=== PATIENT | female | born 1990 | race Caucasian/White ===

== ENCOUNTER 2019-04-12 12:54 | Outpatient (CLI) | payer MEDICAID ==
[~2019-04-12] VITALS: Ht 165.1 cm; Wt 91.9 kg
[2019-04-12 13:18] VITALS: Ht 165.1 cm; Wt 91.9 kg
[2019-04-12 13:19] VITALS: BP 115/70; PULSE 80; RESP 18
[2019-04-12] MEDS ORDERED: PNV11TAB PO (13:22)
--- NOTE | 2019-04-12 14:47 | PN ---
Triage Information Date/Time Reason for visit: Uterine contractions Weeks of Gestation 39+ /Para n/a Diabetes: none Hypertention: none Objective Vital Signs Date Temp Pulse Resp B/P (MAP) Pulse Ox O2 O2 Flow FiO2 Time Delivery Rate 04/12/19 98.5 80 18 115/70 13:19 (85) Heart Rate: 140's Contractions: None Disposition: Discharge Assessment/Plan BPP 08/11 Cx fingertip Precautions discussed Questions answered Follow up with provider JEANE DUKE M.D. Apr 12, 2019 14:47
--- NOTE | 2019-04-12 15:36 | TRIAGE ---
OB Triage Datetime Report Generated by CPN: 04/12/2019 15:35 Datetime: 04/12/2019 14:42 Stage of : OB Triage Datetime: 04/12/2019 14:18 Labor Evaluation Frequency: 0 Monitor Mode: External Pattern: Normal: <= 5 Contractions in 10 Minutes Resting Tone Worth: Relaxed Heart Rate FHR Baseline Rate: 155 Monitor Mode: External US Variability: Moderate 6-25 bpm Accelerations: 10X10 Decelerations: None Category: Category I Pain Assessment Pain Scale: 0 Pain Presence: None/Denies Pain Type: N/A Pain Goal: 3 Pain Relief Measures: Comfort Measures Datetime: 04/12/2019 13:24 Stage of : OB Triage Datetime: 04/12/2019 13:11 Stage of : OB Triage Assessment Type: Triage Maternal Assessment Level of Consciousness: Keenly Alert, Responsive DTR's/Clonus: DTRs 2+; No Clonus Headache: Denies Blurred Vision: No Respiratory Effort: Unlabored; Regular Rhythm; Equal Expansion Breath Sounds, Left: Clear and Equal Breath Sounds, Right: Clear and Equal Nausea/Vomiting: Denies RUQ Epigastric Pain: Denies Facial Edema: None Temperature Route: Axillary Fall Risk Assessment History of Falling: (0) No Secondary Diagnosis: (0) No Ambulatory Aid: (0) Bedrest/Nurse Assist IV Therapy: (0) No Gait: (0) Normal/Bedrest/Immobile Mental Status: (0) Oriented to Own Ability Fall Score: 0 Fall Risk Score Definition: No Risk: No action required Labor Evaluation Frequency: 0 Monitor Mode: External Quality: Mild Pattern: Normal: <= 5 Contractions in 10 Minutes Resting Tone Worth: Relaxed Interventions: Sterile Vaginal Exam Heart Rate FHR Baseline Rate: 160 Monitor Mode: External US Variability: Moderate 6-25 bpm Accelerations: None Decelerations: None Pain Assessment Pain Scale: 2 Pain Presence: Intermittent Pain Type: Cramping Pain Location: Abdomen Pain Goal: 3 Pain Relief Measures: Comfort Measures Vaginal Exam Dilatation (cms): 0.5 Effacement (%): 50 Station: -2 Exam By: S IVETH Membrane Status: Intact Datetime: 04/12/2019 13:07 Time of Arrival: 04/12/2019 12:51 EGA: 39.2 Arrived By: Ambulatory Arrived From: Home Chief Complaint: C/O UC'S Q 8 MIN THAT STARTED AT APPROX 5AM, DENIES BLEEDING OR LEAKING Movement: Present Contractions: Irregular Rupture of Membranes: Denies Vaginal Bleeding: None Vaginal Discharge: Denies Recent Sexual Intercouse: Denies Abdominal Trauma: Not Applicable Patient Complaints: Contractions; Cramping Time Provider Notified: 04/12/2019 13:24 Provider Notified: BRADLEY Initial Plan: MONITOR, VE, BPP
== END 2019-04-12 14:58 | disposition home or self-care (01) ==
LOC: OBT 12:54 → L-D 12:54 → OBT 14:58
PROVIDERS: ATTEND Obstetrics & Gynecology
DX: O62.9 Abnormality of forces of labor, unspecified (principal); Z3A.39 39 weeks gestation of pregnancy
CPT/HCPCS: 76815; 76818; Z7500; G0463

== ENCOUNTER 2019-04-17 09:04 | Inpatient (IN) | payer MEDICAID ==
[~2019-04-17] VITALS: Ht 165.1 cm; Wt 92.2 kg
[~2019-04-17 09:04] MED LIST: PNV11TAB PO
[2019-04-17 09:24] VITALS: Ht 165.1 cm; Wt 92.2 kg
[2019-04-17 09:25] VITALS: BP 134/81; PULSE 82; RESP 18
[2019-04-17] MEDS ORDERED: BUTORPHANOL 2 MG INJ IV PRN ×2 (10:00)
[2019-04-17] MEDS ORDERED: LIDOCAINE 1% (MPF) 30 ML INJ INJ PRN (10:00)
[2019-04-17] MEDS ORDERED: METHYLERGONOVINE 0.2 MG INJ IM PRN (10:00)
[2019-04-17] MEDS ORDERED: OXYTOCIN 30 UNITS/LR 500 ML IV PRN (10:00)
[2019-04-17] MEDS ORDERED: MISOPROSTOL 200 MCG TAB PR PRN (10:00)
[2019-04-17] MEDS ORDERED: MISOPROSTOL 50 MCG CAPSULE VAG ONE (10:00)
[2019-04-17] MEDS ORDERED: OXYTOCIN 30 UNITS/LR 500 ML IV SCH ×2 (10:00)
[2019-04-17] MEDS ORDERED: CARBOPROST 250 MCG INJ IM PRN (10:00)
--- NOTE | 2019-04-17 10:06 | HP ---
Date/Time of Note Date/Time of Note DATE: 04/17/19 TIME: 10:05 OB - History Hx of Present Free Text/Dictation 40+ : 1 Para: 0 Care: Good Care Ultrasounds: Normal mid trimester US Obstetrical Complications: None Medical Complications: None Past Family/Social History * Past Medical, Surgical, Family and Obstetric Histories reviewed from chart. OB Admission Exam Vital Signs Vital Signs Vital Signs Date Temp Pulse Resp B/P (MAP) Pulse Ox O2 O2 Flow FiO2 Time Delivery Rate 04/17/19 98.7 82 18 134/81 09:25 (98) Physical Exam Abdomen: WNL Extremities: Normal Cervical Dilatation: 1cm Effacement: 50% Station: -1 Membranes: Intact Heart Rate: 140's Accelerations: Accelerations Present Decelerations: No Decelerations Varibility: Moderate Contractions on Admission: 6-10 Minutes Apart OB Assessment/Plan Reason for admission: observation Other Assessment: PMH Denies PSH Denies Plan: Expectant Management JEANE DUKE M.D. Apr 17, 2019 10:06
[2019-04-17] MEDS: LACTATED RINGER'S 1,000 ML IV SCH ×3 (10:08→23:20)
[2019-04-17] MEDS: MISOPROSTOL 50 MCG CAPSULE PO SCH (18:22)
[2019-04-17] MEDS ORDERED: MINERAL OIL LIGHT 10 ML VIAL TOP ONE (20:00)
[2019-04-18] MEDS: MISOPROSTOL 50 MCG CAPSULE PO SCH ×2 (00:01→05:51)
[2019-04-18] MEDS: LACTATED RINGER'S 1,000 ML IV SCH ×3 (08:16→14:32)
--- NOTE | 2019-04-18 09:51 | QN ---
Documentation Comment progress note patient seen and evaluated no complaints vs stable afebrile ab gravid nt extremity no edema no calf tenderness ve deffered a/ iup at 40 wks 1 day ga, admitted for induction currently on cytotec for cervical ripening p/ continue present management RIANNA HUERTA MD Apr 18, 2019 09:51
--- NOTE | 2019-04-18 10:53 | PREAC ---
Date/Time of Note Date/Time of Note DATE: 04/18/19 TIME: 10:51 Anesthesia Eval and Record Evaluation Time Pre-Procedure Interview DATE: 04/18/19 TIME: 10:51 Age 28 Sex female NPO: 8 hrs Preoperative diagnosis labor pain Planned procedure epidural Past Medical History Past Medical History: Includes : Gestational age: (40.1) Surgery & Anesthesia Issues No known issue Meds Anticoagulation: No Beta Chilo within 24 hr: No Reason Beta Chilo not given: Pt. not on B-Chilo Reported Medications [id number] ( 19) 1 Each Tablet, 1 TAB PO DAILY, TAB 04/12/19 Current Medications Lactated Ringer's 1,000 ml @ 125 mls/hr Q8H IV Last administered on 04/18/19at 08:16; Admin Dose 125 MLS/HR; Start 04/17/19 at 09:44 Butorphanol Tartrate (Stadol) 1 mg Q2H PRN IV .PAIN SCALE 1-5; Start 04/17/19 at 10:00 Butorphanol Tartrate (Stadol) 2 mg Q2H PRN IV .PAIN SCALE 6-10; Start 04/17/19 at 10:00 Lidocaine (Xylocaine 1% (Mpf)) 30 ml ONCE PRN INJ .EPISIOTOMY; Start 04/17/19 at 10:00 Oxytocin/Lactated Ringer's 500 ml @ 500 mls/hr ONCE POST IV ; Start 04/17/19 at 10:00 Oxytocin/Lactated Ringer's 500 ml @ 125 mls/hr POST IV ; Start 04/17/19 at 10:00 Oxytocin/Lactated Ringer's 500 ml @ 0 mls/hr ONCE PRN IV .VAGINAL BLEEDING; Start 04/17/19 at 10:00 Methylergonovine Maleate (Methergine) 0.2 mg ONCE PRN IM .VAGINAL BLEEDING; Start 04/17/19 at 10:00 Carboprost Tromethamine (Hemabate) 250 mcg ONCE PRN IM .VAGINAL BLEEDING; Start 04/17/19 at 10:00 Misoprostol (Cytotec) 1,000 mcg ONCE PRN PA .VAGINAL BLEEDING; Start 04/17/19 at 10:00 Misoprostol (Cytotec 50 Mcg Capsule) 50 mcg Q4 PO Last administered on 04/18/19at 05:51; Admin Dose 50 MCG; Start 04/17/19 at 18:15 Meds reviewed: Yes Allergies Coded Allergies: No Known Allergy (Unverified , 04/12/19) Allergies Reviewed: Yes Labs/Studies Labs Reviewed: Reviewed by anesthesiologist Result Diagram: 04/17/19 1028 test: Positive Studies: ECG (n/a), CXR (n/a) Pre-procedure Exam Last vitals Vital Signs Date Temp Pulse Resp B/P (MAP) Pulse Ox O2 O2 Flow FiO2 Time Delivery Rate 04/17/19 98.7 82 18 134/81 09:25 (98) Airway: Adequate mouth opening Mallampati: Mallampati I Teeth: Normal Lung: Normal Heart: Normal ASA Physical Status ASA physical status: 2 Emergency: None Planned Anesthetic Neuraxial: Epidural Pre-operative Attestations Prior to commencing anesthesia and surgery, the patient was re-evaluated, there was verification of: *The patient's identity *The results of appropriate recent lab work and preoperative vital signs *The above evaluation not changing prior to induction *Anesthetic plan, risk benefits, alternative and complications discussed with patient/family; questions answered; patient/family understands, accepts and wishes to proceed. JIMMIE MARIN MD Apr 18, 2019 10:52
[2019-04-18] MEDS ORDERED: FENTAnyl 2MCG/ML-ROPIV 0.2% 100 ML BAG EPI SCH (11:00)
[2019-04-18] MEDS ORDERED: NALOXONE (0.4 MG/ML) INJ IV PRN (11:00)
--- NOTE | 2019-04-18 12:32 | QN ---
Documentation Comment progress note labor and delivery was call to evaluated patient for distress patient has no complaints vs stable afebrile ab gravid nt extremity no edema no calf tenderness ve 8/90/-1 srom fhr cat 2 toco regular a/ iup at 40 wk ga, cat 2 p/ patient decline CD r/b/a explained continue resuscitative measure anticipate vaginal delivery RIANNA HUERTA MD Apr 18, 2019 12:32
[2019-04-18] MEDS ORDERED: OXYTOCIN 30 UNITS/LR 500 ML IV SCH (15:19)
--- NOTE | 2019-04-18 15:19 | LDN ---
Date/Time of Note Date/Time of Note DATE: 04/18/19 TIME: 15:18 Delivery Summary Weeks of Gestation 40 Placenta Delivered: Spontaneously Meconium: Light Episiotomy: No Laceration repair: 1st degree vaginal laceration repair with 2-0 and 3-0 chromic Estimated blood loss: 300 Sponge & Needle done & correct: Yes All needle counts correct: Yes Any foreign bodies felt in the: No Delivery Information Sex Sex: female Apgars 1 Minute: 8 5 Minute: 8 Suctioning Nose & mouth suctioned at oliver: No Delee suction performed: No Umbilical Cord Umbilical cord with: 3 Vessels Cord presentations: nuchal cord Nuchal cord present X: 1 Cord Blood was obtained: Yes RIANNA HUERTA MD Apr 18, 2019 15:19
[2019-04-18] MEDS ORDERED: OXYTOCIN 30 UNITS/LR 500 ML IV PRN (15:30)
[2019-04-18] MEDS ORDERED: NACL 0.9% 3 ML SYG IV SCH (15:30)
[2019-04-18] MEDS ORDERED: OXYCODONE/ASPIRIN (4.88/325) TAB PO PRN ×2 (15:30)
[2019-04-18] MEDS ORDERED: MISOPROSTOL 200 MCG TAB PR PRN (15:30)
[2019-04-18] MEDS ORDERED: METHYLERGONOVINE 0.2 MG INJ IM PRN (15:30)
[2019-04-18] MEDS ORDERED: CARBOPROST 250 MCG INJ IM PRN (15:30)
[2019-04-18] MEDS ORDERED: ONDANSETRON 4 MG INJ IV PRN (15:30)
[2019-04-18] MEDS ORDERED: SENNA/DOCUSATE NA (8.6MG/50MG) TAB PO PRN (15:30)
[2019-04-18 17:00] VITALS: BP 138/71; PULSE 77; RESP 18
[2019-04-18] MEDS: IBUPROFEN 600 MG TAB PO SCH ×2 (17:29→23:29)
[2019-04-18] MEDS: BENZOCAINE 20% 56 ML SPRAY TOP PRN (17:29)
[2019-04-18] MEDS: WITCH HAZEL/GLYCERIN PAD PR PRN (17:29)
[2019-04-18] MEDS: LANOLIN HPA 1 PKT TOP PRN (17:29)
[2019-04-18 19:45] VITALS: BP 118/58; PULSE 73; RESP 18
[2019-04-18] MEDS: SENNA/DOCUSATE NA (8.6MG/50MG) TAB PO SCH (21:11)
[2019-04-19 00:02] VITALS: BP 118/75; PULSE 75; RESP 18
[2019-04-19 03:42] VITALS: BP 114/78; PULSE 72; RESP 18
[2019-04-19] MEDS: IBUPROFEN 600 MG TAB PO SCH ×3 (05:29→17:54)
[2019-04-19 08:00] VITALS: BP 115/70; PULSE 72; RESP 19
[2019-04-19] MEDS: SENNA/DOCUSATE NA (8.6MG/50MG) TAB PO SCH ×2 (09:18→21:20)
[2019-04-19 17:17] VITALS: BP 115/79; PULSE 83; RESP 18
--- NOTE | 2019-04-19 17:27 | PD.PPDC ---
SPECIAL EFFECTS ARTIST Discharge Instruction Condition [id number] Patient Condition: Kdjhg2a Good Diet Lhevg8Gh Diet: Rcfrh4r Resume Regular Diet Activity/Restrictions [id number] Activity: Tlyiv5u Normal Activity May Shower [id number] Restrictions: [id number] No Exercising No Lifting No Driving No Sexual Activity Nothing in the Vagina No [place] No Tampons, douche Wound/Drain Care Instructions [id number] Wound/Drain Care Instructions: [id number] Wash with soap and water Keep clean and dry Follow-up Follow-up with Physician: 3, Week/Weeks Return to clinic for [id number] MOVIE WRITER Instructions: Rwhqp8s Fever greater than 101 Chills Worsening abdominal pain Excessive Vaginal Bleeding More than 2 pads per hour Unable to tolerate diet [id number] OB Instructions: Uliug8b Breast Tenderness Depression Blurried Vision Headache [id number] Surgical Instructions: Jsuzz2x Incisional Drainage Incisional Redness RIANNA HUERTA MD Apr 19, 2019 17:27
[2019-04-19 20:30] VITALS: BP 128/81; PULSE 76; RESP 19
[2019-04-20] MEDS: IBUPROFEN 600 MG TAB PO SCH ×3 (00:18→11:47)
[2019-04-20 03:37] VITALS: BP 124/70; PULSE 70; RESP 21
[2019-04-20] MEDS: LANOLIN HPA 1 PKT TOP PRN ×2 (05:42→11:47)
[2019-04-20 08:00] VITALS: BP 128/86; PULSE 70; RESP 19
--- NOTE | 2019-04-20 08:06 | PAC ---
Date/Time of Note Date/Time of Note DATE: 04/20/19 TIME: 08:06 Post-Anesthesia Notes Post-Anesthesia Note Last documented vital signs Vital Signs Date Temp Pulse Resp B/P (MAP) Pulse Ox O2 O2 Flow FiO2 Time Delivery Rate 04/20/19 98.2 70 21 124/70 98 Room Air 03:37 (88) Activity: WNL Respiratory function: WNL Cardiovascular function: WNL Mental status: Baseline Pain reasonably controlled: Yes Hydration appropriate: Yes Nausea/Vomiting absent: No JIMMIE MARIN MD Apr 20, 2019 08:06
[2019-04-20] MEDS: SENNA/DOCUSATE NA (8.6MG/50MG) TAB PO SCH (09:37)
[2019-04-20] MEDS: WITCH HAZEL/GLYCERIN PAD PR PRN (11:48)
[2019-04-20] MEDS: BENZOCAINE 20% 56 ML SPRAY TOP PRN (11:48)
--- NOTE | 2019-04-21 14:58 | DELSUM ---
Delivery Summary A-C Datetime Report Generated by CPN: 04/21/2019 14:58 DELIVERY PERSONNEL Battery Tester Field: Ghukasyan, Maryuri MATERNAL INFORMATION Delivery Anesthesia: Epidural Medications in Delivery: 30 UNITS OF PIT IN 500 CC LR Delivery QBL (ml): 300 Placenta Cultured: No Maternal Complications: None LABOR SUMMARY EDC: 04/17/2019 00:00 No. Babies in Womb: 1 Attempted: No Labor Anesthesia: Epidural LABOR INFORMATION Reason for Induction: Postterm Onset of Labor: 04/18/2019 06:00 Complete Dilatation: 04/18/2019 14:46 Cervical Ripening Agents: Cytotec @ Oxytocin: N/A Group B Beta Strep: Negative Antibiotics # of Doses: 0 Steroids Given: None Reason Steroids Not Administered: Not Applicable MEMBRANES Membranes Rupture Method: Spontaneous Rupture of Membranes: 04/18/2019 10:43 Length of Rupture (hr): 4.28 Amniotic Fluid Color: Light Meconium Amniotic Fluid Amount: Moderate Amniotic Fluid Odor: None STAGES OF LABOR Stage 1 hr: 8 Stage 1 min: 46 Stage 2 hr: 0 Stage 2 min: 14 Stage 3 hr: 0 Stage 3 min: 2 Total Time in Labor hr: 9 Total Time in Labor min: 2 VAGINAL DELIVERY Episiotomy: None Laceration Extension: First Degree Laceration Type: Vaginal Laceration Repair: Yes Initial Vag Sponge Count: 20 Final Vag Sponge Count: 20 Initial Vag Sharps Count: 3 Final Vag Sharps Count: 3 Sponge Count Correct: Yes Sharps Count Correct: Yes Count Comment: 2 SHARPS ADDED DURING DELIVERY BABY A INFORMATION Infant Delivery Date/Time: 04/18/2019 15:00 Method of Delivery: Vaginal Born in Route : No : N/A Forceps: N/A Vacuum Extraction: N/A Shoulder Dystocia : N/A SHOULDER DYSTOCIA BABY A Infant Delivery Date/Time: 04/18/2019 15:00 PRESENTATION/POSITION BABY A Presentation: Cephalic Cephalic Presentation: Vertex Vertex Position: Left Occipital Anterior Breech Presentation: N/A PLACENTA INFORMATION BABY A Placenta Delivery Time : 04/18/2019 15:02 Placenta Method of Delivery: Spontaneous Placenta Status: Delivered SCORES BABY A Heart Rate 1 min: >100 bpm Resp Effort 1 min: Good Cry Reflex Irritability 1 min: Cough/Sneeze/Pulls Away Muscle Tone 1 min: Active Motion Color 1 min: Blue/Pale Resuscitation Effort 1 min: Tactile Stimulation SCORE 1 MIN: 8 Heart Rate 5 min: >100 bpm Resp Effort 5 min: Good Cry Reflex Irritability 5 min: Cough/Sneeze/Pulls Away Muscle Tone 5 min: Active Motion Color 5 min: Body Crary, Extremit Blue Resuscitation Effort 5 min: Tactile Stimulation SCORE 5 MIN: 9 INFORMATION BABY A Gestational Age at Delivery: 40.1 Gestational Status: Full Term- 39- 40.6 Weeks Outcome : Liveborn Infant Condition : Stable Sex: Female IDENTIFICATION/MEDS BABY A ID Band Number: [id number] ID Band Location: Right Leg; Left Arm Sensor Applied: Yes Sensor Number: [id number] Sensor Location : Cord Clamp Vitamin K Given : Not Given Erythromycin Given: Not Given WEIGHT/LENGTH BABY A Birthweight (gm): 3445 Weight (lb): 7 Infant Weight (oz): 10 Infant Length (in): 20.50 Length (cm): 52.07 CORD INFORMATION BABY A No. Cord Vessels: 3 Nuchal Cord : Around Neck x1, Tight Suction: Mouth; Nose ASSESSMENT BABY A Infant Complications: None Physical Findings at Delivery: Within Normal Limits Respirations: Appears Normal Milk Powder Grinder/ALS Called : No Infant Care By: Delfin STEIN Transferred To: Remains with Mother
== END 2019-04-20 13:35 | disposition home or self-care (01) | DRG 807 ==
LOC: OBT 09:04 → L-D 09:06 → OBT 09:40 → L-D 16:01 → PP1 04-18 16:56
PROVIDERS: ADMIT Obstetrics & Gynecology; ATTEND Obstetrics & Gynecology
PROC: 10E0XZZ Delivery of Products of Conception, External Approach (ICD-10-PCS; principal; 2019-04-18)
PROC: 0HQ9XZZ Repair Perineum Skin, External Approach (ICD-10-PCS; 2019-04-18)
PROC: 3E033VJ Introduction of Other Hormone into Peripheral Vein, Percutaneous Approach (ICD-10-PCS; 2019-04-18)
DX: O69.81X0 Labor and delivery complicated by cord around neck, without compression, not applicable or unspecified (principal); Z37.0 Single live birth; O48.0 Post-term pregnancy; Z3A.40 40 weeks gestation of pregnancy
CPT/HCPCS: 62322; 76815; 85025; 85610; 85730; 86592; 86850; 86900; 86901; 87340; 99464; G0463; J2210; J2590; J3010; J7120